=== PATIENT | male | born 1970 | race Caucasian/White ===

== ENCOUNTER 2017-01-28 09:03 | Emergency (ER) | payer BC | END 2017-01-28 12:14 | disposition home or self-care (01) | LOC: ER 09:03 | DX: L02.416 Cutaneous abscess of left lower limb (principal); I10 Essential (primary) hypertension; F17.210 Nicotine dependence, cigarettes, uncomplicated; Z86.718 Personal history of other venous thrombosis and embolism; Z79.01 Long term (current) use of anticoagulants; Z79.899 Other long term (current) drug therapy | CPT/HCPCS: 10060; 87070; 87186; 96372; 99070; 99283-25 ==

== ENCOUNTER 2017-01-30 16:14 | Emergency (ER) | payer BC | END 2017-01-30 16:24 | disposition left against medical advice (07) | LOC: ER 16:14 | DX: Z53.21 Procedure and treatment not carried out due to patient leaving prior to being seen by health care provider (principal) | CPT/HCPCS: 99211 ==